=== PATIENT | male | born 1960 | race African-American/Black ===

== ENCOUNTER 2021-12-13 06:16 | Inpatient (IN) | payer MEDICAID ==
[~2021-12-13] VITALS: Ht 188 cm; Wt 122.1 kg
[~2021-12-13 06:16] MED LIST: ASPI1TAB20 PO; GABA-339 PO; NIFE90TA49 PO; OXYC325T14 PO; SILD50TA42 PO; SIMV10TA84 PO; TAMS0.4C36 PO
[2021-12-13] MEDS ORDERED: TRANEXAMIC ACID 20 ML ONE (06:45)
[2021-12-13] MEDS ORDERED: ceFAZolin 1GM/50ML 100 ML IV ONE ×2 (06:49→23:03)
[2021-12-13] MEDS ORDERED: VANCOMYCIN HCL 1000 MG VL ONE (07:14)
[2021-12-13] MEDS ORDERED: EPINEPHrine HCL 1 MG/1 ML AMP ONE (07:16)
[2021-12-13] MEDS ORDERED: ONDANSETRON HCL 4 MG/2 ML VIAL ONE (07:33)
[2021-12-13] MEDS ORDERED: MIDAZOLAM HCL 2MG/2ML 2ml VIAL (1mg/ml) ONE (07:33)
[2021-12-13] MEDS ORDERED: fentaNYL CITRATE 5 ML ONE (07:33)
[2021-12-13] MEDS ORDERED: LIDOCAINE 2% (LOCAL ANESTH.) PF 5ml SDV ONE (07:33)
[2021-12-13] MEDS ORDERED: PROPOFOL 10 MG/ML 20 ML IV ONE (07:33)
[2021-12-13] MEDS ORDERED: ROCURONIUM 10MG/ML 10ML VIAL IV ONE (07:33)
[2021-12-13] MEDS ORDERED: BUPIVACAINE W/ EPINEPH 0.25% INJ 50ML MDV ONE (07:46)
[2021-12-13] MEDS ORDERED: KETOROLAC TROMETH 30 MG/ML 1ML VIAL ONE (07:47)
[2021-12-13] MEDS ORDERED: MORPHINE SULF PF 5 MG/10 ML VIAL ONE (08:35)
[2021-12-13] MEDS ORDERED: ONDANSETRON HCL 4 MG/2 ML VIAL IV PRN (09:30)
[2021-12-13] MEDS ORDERED: HYDROmorphone HCL 2 MG/ML VL IV PRN ×3 (09:30→10:30)
[2021-12-13 12:15] VITALS: BP 130/88
[2021-12-13] MEDS: ACETAMINOPHEN 325 MG TAB PO SCH ×2 (12:19→17:30)
[2021-12-13] MEDS: KETOROLAC TROMETH 30 MG/ML 1ML VIAL IV SCH ×2 (12:20→17:30)
[2021-12-13] MEDS ORDERED: ceFAZolin 2 GM in D5W 5% 100 ML IV SCH ×2 (14:00→22:59)
[2021-12-13] MEDS: D5W/LACTATED RINGERS 1,000 ML IV SCH ×2 (14:28→20:57)
[2021-12-13] MEDS: oxyCODONE HCL 5MG TAB PO PRN ×2 (15:11→20:58)
[2021-12-13 17:00] VITALS: BP 128/81
[2021-12-13 22:00] VITALS: BP 130/79
[2021-12-13] MEDS: GABAPENTIN 300 MG CAP PO SCH (22:00)
[2021-12-14] MEDS: KETOROLAC TROMETH 30 MG/ML 1ML VIAL IV SCH ×4 (00:11→17:39)
[2021-12-14] MEDS: ACETAMINOPHEN 325 MG TAB PO SCH ×4 (00:12→17:39)
[2021-12-14 04:57] VITALS: BP 125/84
[2021-12-14] MEDS: D5W/LACTATED RINGERS 1,000 ML IV SCH ×2 (05:42→18:47)
[2021-12-14] MEDS: NIFEdipine ER 30 MG TAB PO SCH (09:08)
[2021-12-14] MEDS: GABAPENTIN 300 MG CAP PO SCH ×2 (09:09→22:00)
[2021-12-14] MEDS: TAMSULOSIN HYDROCHLORIDE 0.4 MG CAP PO SCH (09:09)
[2021-12-14 09:31] VITALS: BP 122/78
[2021-12-14] MEDS ORDERED: ASPirin 81 mg TAB PO SCH (10:00)
[2021-12-14 13:00] VITALS: BP 146/87
[2021-12-14] MEDS: oxyCODONE HCL 5MG TAB PO PRN ×2 (16:47→22:53)
[2021-12-14 17:00] VITALS: BP 111/74
[2021-12-14 22:00] VITALS: BP 125/77
[2021-12-15] MEDS: ACETAMINOPHEN 325 MG TAB PO SCH ×3 (00:13→11:16)
[2021-12-15] MEDS: KETOROLAC TROMETH 30 MG/ML 1ML VIAL IV SCH ×3 (00:13→11:17)
[2021-12-15] MEDS: D5W/LACTATED RINGERS 1,000 ML IV SCH ×2 (02:29→11:17)
[2021-12-15 05:00] VITALS: BP 131/86
[2021-12-15 08:57] VITALS: BP 116/77
[2021-12-15] MEDS: GABAPENTIN 300 MG CAP PO SCH (09:04)
[2021-12-15] MEDS: NIFEdipine ER 30 MG TAB PO SCH (09:04)
[2021-12-15] MEDS: TAMSULOSIN HYDROCHLORIDE 0.4 MG CAP PO SCH (09:04)
[2021-12-15 13:00] VITALS: BP_SYST 116; BP_SYST 144; BP_DIAS 77; BP_DIAS 78
[2021-12-15] MEDS: oxyCODONE HCL 5MG TAB PO PRN (14:01)
[2021-12-15 14:49] VITALS: BP 144/84
[2021-12-15 14:51] VITALS: BP 144/84
== END 2021-12-15 17:00 | disposition home health service (06) | DRG 326 ==
LOC: SUR 06:16 → OVERFLOW 10:23 → EAST 12:14
PROVIDERS: ADMIT Orthopaedic Surgery; ATTEND Orthopaedic Surgery
PROC: 0SRC069 Replacement of Right Knee Joint with Oxidized Zirconium on Polyethylene Synthetic Substitute, Cemented, Open Approach (ICD-10-PCS; principal; 2021-12-13 07:50)
DX: M17.11 Unilateral primary osteoarthritis, right knee (principal); G40.909 Epilepsy, unspecified, not intractable, without status epilepticus; I10 Essential (primary) hypertension; G89.29 Other chronic pain; N40.0 Benign prostatic hyperplasia without lower urinary tract symptoms; I25.10 Atherosclerotic heart disease of native coronary artery without angina pectoris
CPT/HCPCS: 73562; 86850; 86900; 86901; 97116; 97163; 97530; C1713; G0378; J0171; J0690; J1885; J2001; J2250; J2405; J2704; J7060

== ENCOUNTER 2023-12-04 06:08 | Inpatient (IN) | payer OTHER, MEDICAID ==
[~2023-12-04] VITALS: Ht 188 cm; Wt 117.0 kg
[2023-12-04] VITALS (16 sets, daily range): BP systolic 107–157; BP diastolic 74–103; PULSE 66–91; RESP 12–20; TEMP 98.2–98.4; O2SAT 92–98
[~2023-12-04 06:08] MED LIST changes: -ASPI1TAB20 PO; -GABA-339 PO; +GABA300T4 PO; +MECL12.586 PO; -NIFE90TA49 PO; +NIFE90TA75 PO; +OXYB5TAB14 PO; +SILD50TA PO; -SILD50TA42 PO; +SIMV10TA20 PO; -SIMV10TA84 PO; +TRAZ-184 PO
[2023-12-04] MEDS: ceFAZolin 2 GM/D5W50ml 50 ML IV ONE (06:19)
[2023-12-04] MEDS: BUPIVACAINE 0.5% P/F INJ 10 ML VIAL ONE (07:09)
[2023-12-04] MEDS ORDERED: MIDAZOLAM HCL 2MG/2ML 2ml VIAL (1mg/ml) ONE ×2 (07:16→08:57)
[2023-12-04] MEDS ORDERED: KETAMINE 50mg/ML 1ml syringe ONE (07:16)
[2023-12-04] MEDS ORDERED: fentaNYL CITRATE 100 MCG/2 ML VL ONE (07:16)
[2023-12-04] MEDS ORDERED: MORPHINE SULF PF 5 MG/10 ML VIAL ONE (07:16)
[2023-12-04] MEDS ORDERED: PHENYLEPHRINE HCL 10 MG/ML VL ONE (07:17)
[2023-12-04] MEDS ORDERED: DexAMETHasone SOD PHOS 10MG/1ML VIAL INJ ONE (07:17)
[2023-12-04] MEDS ORDERED: ONDANSETRON HCL 4 MG/2 ML VIAL ONE (07:17)
[2023-12-04] MEDS ORDERED: KETOROLAC TROMETH 30 MG/ML 1ML VIAL ONE (07:17)
[2023-12-04] MEDS ORDERED: PROPOFOL 10 MG/ML 20 ML IV ONE ×2 (07:17)
[2023-12-04] MEDS ORDERED: GLYCOPYRROLATE 0.2 MG/ML 1ML VIAL ONE (07:17)
[2023-12-04] MEDS: TRANEXAMIC ACID 20 ML ONE (07:34)
[2023-12-04] MEDS: VANCOMYCIN HCL 1000 MG VL ONE (09:41)
[2023-12-04] MEDS ORDERED: ONDANSETRON HCL 4 MG/2 ML VIAL IV PRN (10:15)
[2023-12-04] MEDS ORDERED: HYDROmorphone HCL 2 MG/ML VL/or syr IV PRN ×2 (10:30→11:30)
[2023-12-04] MEDS ORDERED: NALOXONE HCL 0.4 MG/ML VIAL IV PRN (10:30)
[2023-12-04] MEDS ORDERED: DexAMETHasone SOD PHOS 10MG/1ML VIAL INJ IV PRN (10:30)
[2023-12-04] MEDS ORDERED: diphenhdrAMINE HCL 50 MG/1 ML VL IV PRN (10:30)
[2023-12-04] MEDS ORDERED: ONDANSETRON HCL 4 MG/2 ML VIAL IV ONE (10:30)
[2023-12-04] MEDS: KETOROLAC TROMETH 30 MG/ML 1ML VIAL IV PRN (10:42)
[2023-12-04] MEDS ORDERED: MECLIZINE HCL 25 MG TAB PO SCH (10:45)
[2023-12-04] MEDS: SODIUM CHLORIDE 0.9% 1,000 ML IV SCH (11:40)
[2023-12-04] MEDS ORDERED: KETOROLAC TROMETH 30 MG/ML 1ML VIAL IV SCH (12:00)
[2023-12-04] MEDS: ACETAMINOPHEN 325 MG TAB PO SCH (13:31)
[2023-12-04] MEDS: ceFAZolin 2 GM/D5W50ml 50 ML IV SCH (15:00)
[2023-12-04] MEDS: NIFEdipine ER 30 MG TAB PO SCH (15:37)
[2023-12-04] MEDS: traZODone HCL 50 MG TAB PO SCH (20:58)
[2023-12-04] MEDS: PREGABALIN 25 MG CAP PO SCH (20:58)
[2023-12-04] MEDS ORDERED: TRAZODONE HCL 100 MG PO SCH (22:00)
[2023-12-05] VITALS (23 sets, daily range): BP systolic 90–133; BP diastolic 54–93; PULSE 76–100; RESP 16–20; TEMP 98–98.4; O2SAT 84–98
[2023-12-05 05:14] LABS: Basophils # (auto) 0 10 ^3/uL (0-0.2); Basophils % (auto) 0.1 % (0.0-2.0); Eosinophils # (auto) 0 10 ^3/uL (0-0.8); Hematocrit 24.6 % (41.0-53.0); Hemoglobin 8.5 g/dL (13.5-17.5); Lymphocytes # (auto) 1.8 10 ^3/uL (0.4-5.4); Lymphocytes % (auto) 16.6 % (10.0-50.0); Mean Corpuscular Hgb Conc. 34.4 g/dL (32.0-36.0); Mean Corpuscular Volume 95.9 fL (80.0-100.0); Monocytes # (auto) 1.2 10 ^3/uL (0-1.3); Neutrophils # (auto) 7.9 10 ^3/uL (1.6-8.6); Neutrophils % (auto) 72.3 % (37.0-80.0); Red Blood Cells 2.57 10^6/uL (4.5-5.90); Red Cell Distribution Width 13.6 % (11.8-14.3)
[2023-12-05 05:26] LABS: Calcium 8.6 mg/dL (8.7-10.4); Chloride 108 mmol/L (98-107); Sodium 138 mmol/L (136-145)
[2023-12-05 05:27] LABS: Anion Gap 5 (5-15); Carbon Dioxide 25 mmol/L (20-30)
[2023-12-05 05:33] LABS: BUN/Creatinine Ratio 16.8 (10.0-20.0); Blood Urea Nitrogen 16 mg/dL (9-23); Glucose 127 mg/dL (74-106)
[2023-12-05] MEDS: OXYBUTYNIN CHL 5 MG TAB PO SCH (05:41)
[2023-12-05] MEDS ORDERED: NIFEdipine ER 30 MG TAB PO SCH (10:00)
[2023-12-05] MEDS: APIXABAN 2.5 MG TAB PO SCH (10:28)
[2023-12-05] MEDS: TAMSULOSIN HYDROCHLORIDE 0.4 MG CAP PO SCH (10:30)
[2023-12-05 11:09] LABS: % Iron Saturation 14.6 % (20-55)
[2023-12-05 11:55] LABS: Folate (Folic Acid) 8.29 ng/mL (>5.38)
[2023-12-05] MEDS: oxyCODONE HCL 5MG TAB PO PRN (20:23)
[2023-12-05] MEDS: CYANOCOBALAMIN (B-12) 1000 MCG/1 ML VIAL IM SCH (21:49)
[2023-12-06] VITALS (9 sets, daily range): BP systolic 114–148; BP diastolic 61–82; PULSE 71–94; RESP 18–20; TEMP 98–98.9; O2SAT 92–98
[2023-12-06 07:41] LABS: Basophils # (auto) 0 10 ^3/uL (0-0.2); Eosinophils # (auto) 0 10 ^3/uL (0-0.8); Eosinophils % (auto) 0.8 % (0.0-7.0); Mean Corpuscular Hgb Conc. 33.7 g/dL (32.0-36.0); Monocytes # (auto) 0.8 10 ^3/uL (0-1.3); Nucleated Red Blood Cells % 0.1 %; Red Blood Cells 2.14 10^6/uL (4.5-5.90)
[2023-12-06 07:42] LABS: Basophils % (auto) 0.6 % (0.0-2.0); Hematocrit 20.4 % (41.0-53.0); Lymphocytes # (auto) 1.3 10 ^3/uL (0.4-5.4); Lymphocytes % (auto) 21.3 % (10.0-50.0); Mean Corpuscular Hemoglobin 32.2 pg (28.0-32.0); Mean Corpuscular Volume 95.4 fL (80.0-100.0); Monocytes % (auto) 13.8 % (0.0-12.0); Neutrophils # (auto) 3.8 10 ^3/uL (1.6-8.6); Neutrophils % (auto) 63.5 % (37.0-80.0); Red Cell Distribution Width 13.6 % (11.8-14.3)
[2023-12-06 07:49] LABS: Hemoglobin 6.9 g/dL (13.5-17.5)
[2023-12-06] MEDS: FERROUS SULFATE 325mg EC TAB PO SCH (09:09)
[2023-12-06] MEDS: DOCUSATE SOD 100 MG CAP PO SCH (09:10)
[2023-12-06] MEDS: ASCORBIC ACID 500 MG TAB PO SCH (09:10)
[2023-12-06 10:47] LABS: Hematocrit 20.1 % (41.0-53.0)
[2023-12-06 10:52] LABS: Hemoglobin 6.9 g/dL (13.5-17.5)
[2023-12-06] MEDS: IRON SUCROSE COMPLEX 100 ML IV ONE (11:44)
[2023-12-06] MEDS ORDERED: CYA100I IM (12:28)
[2023-12-06] MEDS ORDERED: ASCO500T11 PO (12:28)
[2023-12-06] MEDS ORDERED: FER325T PO (12:28)
[2023-12-06] MEDS ORDERED: DOCU-265 PO (12:28)
[2023-12-06] MEDS: ONDANSETRON HCL 4 MG/2 ML VIAL IV PRN (18:17)
[2023-12-07] VITALS (9 sets, daily range): BP systolic 105–128; BP diastolic 55–69; PULSE 70–85; RESP 16–18; TEMP 98–99; O2SAT 94–98
[2023-12-07 06:09] LABS: Basophils # (auto) 0 10 ^3/uL (0-0.2); Basophils % (auto) 0.6 % (0.0-2.0); Eosinophils # (auto) 0.1 10 ^3/uL (0-0.8); Eosinophils % (auto) 1.8 % (0.0-7.0); Hematocrit 22.8 % (41.0-53.0); Hemoglobin 7.8 g/dL (13.5-17.5); Lymphocytes # (auto) 1.9 10 ^3/uL (0.4-5.4); Lymphocytes % (auto) 28.9 % (10.0-50.0); Mean Corpuscular Hemoglobin 32.6 pg (28.0-32.0); Mean Corpuscular Hgb Conc. 34.3 g/dL (32.0-36.0); Monocytes # (auto) 0.7 10 ^3/uL (0-1.3); Neutrophils # (auto) 3.9 10 ^3/uL (1.6-8.6); Neutrophils % (auto) 57.7 % (37.0-80.0); Nucleated Red Blood Cells % 0.1 %; Red Cell Distribution Width 14.4 % (11.8-14.3); White Blood Cell 6.7 10^3/uL (4.4-10.8)
== END 2023-12-07 21:07 | disposition home health service (06) | DRG 470 ==
LOC: SUR 06:08 → OVERFLOW 10:13 → WEST WING 12:23 → TELE-WESTW 12-05 01:12
PROVIDERS: ADMIT Orthopaedic Surgery; ATTEND Orthopaedic Surgery
PROC: 0SRB06Z Replacement of Left Hip Joint with Oxidized Zirconium on Polyethylene Synthetic Substitute, Open Approach (ICD-10-PCS; principal; 2023-12-04 07:44)
PROC: 30233N1 Transfusion of Nonautologous Red Blood Cells into Peripheral Vein, Percutaneous Approach (ICD-10-PCS; 2023-12-06)
DX: M16.12 Unilateral primary osteoarthritis, left hip (principal); I10 Essential (primary) hypertension; E78.5 Hyperlipidemia, unspecified; D50.9 Iron deficiency anemia, unspecified; G62.9 Polyneuropathy, unspecified; G47.00 Insomnia, unspecified; E53.8 Deficiency of other specified B group vitamins; N40.1 Benign prostatic hyperplasia with lower urinary tract symptoms; N39.498 Other specified urinary incontinence; Z82.49 Family history of ischemic heart disease and other diseases of the circulatory system; Z79.899 Other long term (current) drug therapy
CPT/HCPCS: 36415; 72170; 73501; 80048; 82607; 82746; 83540; 83550; 85014; 85018; 85025; 86850; 86900; 86901; 86920; 97110; 97116; 97163; 97530; A4565; G0378; J1100; J1756; J1885; J2250; J2405; J2704; J3490

== ENCOUNTER 2023-12-11 14:47 | Emergency (ER) | payer OTHER, MEDICAID ==
[~2023-12-11] VITALS: Ht 188 cm; Wt 102.0 kg
[~2023-12-11 14:47] MED LIST changes: +ASCO500T11 PO; +CYA100I IM; +DOCU-265 PO; +FER325T PO
[2023-12-11 17:10] LABS: Basophils # (auto) 0 10 ^3/uL (0-0.2); Basophils % (auto) 0.3 % (0.0-2.0); Eosinophils # (auto) 0 10 ^3/uL (0-0.8); Eosinophils % (auto) 0.2 % (0.0-7.0); Hematocrit 32.2 % (41.0-53.0); Hemoglobin 10.8 g/dL (13.5-17.5); Lymphocytes # (auto) 2.6 10 ^3/uL (0.4-5.4); Lymphocytes % (auto) 18.1 % (10.0-50.0); Mean Corpuscular Hemoglobin 31.8 pg (28.0-32.0); Mean Corpuscular Hgb Conc. 33.5 g/dL (32.0-36.0); Monocytes # (auto) 1.4 10 ^3/uL (0-1.3); Monocytes % (auto) 9.9 % (0.0-12.0); Neutrophils # (auto) 10.1 10 ^3/uL (1.6-8.6); Neutrophils % (auto) 71.5 % (37.0-80.0); Nucleated Red Blood Cells % 0.2 %; Red Blood Cells 3.39 10^6/uL (4.5-5.90); Red Cell Distribution Width 14.5 % (11.8-14.3); White Blood Cell 14.1 10^3/uL (4.4-10.8)
[2023-12-11 17:26] LABS: Alanine Aminotransferase 18 U/L (7-40); Alkaline Phosphatase 72 U/L (46-116); Anion Gap 11 (5-15); Aspartate Aminotransferase 14 U/L (13-40); BUN/Creatinine Ratio 17.1 (10.0-20.0); Blood Urea Nitrogen 19 mg/dL (9-23); Calcium 9.9 mg/dL (8.7-10.4); Carbon Dioxide 22 mmol/L (20-30); Chloride 104 mmol/L (98-107); Glucose 117 mg/dL (74-106); Lipase 231 U/L (12-53); Potassium 3.1 mmol/L (3.5-5.1); Sodium 137 mmol/L (136-145)
[2023-12-11 17:27] LABS: Albumin 4.4 g/dL (3.2-4.8); Bilirubin, Total 1.7 mg/dL (0.2-1.0); Total Protein 7.1 g/dL (5.7-8.2)
[2023-12-11 23:04] LABS: Urine Bacteria None Seen /hpf (None Seen)
[2023-12-11 23:43] LABS: Urine Blood Negative /uL (Negative); Urine Clarity Clear (Clear); Urine Color Yellow (Yellow); Urine Hyaline Cast MOD /lpf (0 - 2); Urine Mucus FEW (None Seen); Urine Protein, UAD 1+ (Negative); Urine Specific Gravity 1.038 (1.001-1.035); Urine Urobilinogen Normal (Negative); Urine WBC 3 /hpf (0 - 3); Urine pH 5.5 (5.0-9.0)
[2023-12-12] MEDS ORDERED: ZOFR4T PO (00:45)
[2023-12-12] MEDS ORDERED: FAMO20TA10 PO (00:45)
[2023-12-12] MEDS ORDERED: HYDR-4902 PO (00:45)
[2023-12-12 01:54] VITALS: BP 116/82; PULSE 87; RESP 19; TEMP 97.9; O2SAT 97
[2023-12-12] MEDS: SODIUM CHLORIDE 0.9% 1,000 ML IV ONE (01:57)
[2023-12-12] MEDS: MORPHINE SULFATE INJ 2 MG/ml SYRG IV ONE (01:57)
[2023-12-12] MEDS: ONDANSETRON HCL 4 MG/2 ML VIAL IV ONE ×2 (01:57→02:04)
[2023-12-12] MEDS: POTASSIUM CHL 20 Meq TABLET PO ONE (02:03)
== END 2023-12-12 02:23 | disposition home or self-care (01) ==
LOC: ER 14:47 → EDBD 14:47 → ER 12-12 02:22
DX: R94.8 Abnormal results of function studies of other organs and systems (principal); K29.70 Gastritis, unspecified, without bleeding; M79.605 Pain in left leg; N20.0 Calculus of kidney; K76.89 Other specified diseases of liver; I82.402 Acute embolism and thrombosis of unspecified deep veins of left lower extremity
CPT/HCPCS: 36415; 74176; 80053; 81001; 82150; 83605; 83690; 84484; 85025; 93971; 96374; 99285; J2405